=== PATIENT | female | born 1975 | race Caucasian/White ===

== ENCOUNTER 2023-06-08 06:30 | Outpatient (CLI) | payer BC, SELFPAY ==
--- NOTE | 2023-06-08 07:50 | W.ANESCHARGE ---
Anesthesia Charges Start Date/Time Anesthesia Start Date: 06/08/23 Anesthesia Start Time: 07:20 Stop Date/Time Anesthesia Stop Date: 06/08/23 Anesthesia Stop Time: 07:50
--- NOTE | 2023-06-08 08:58 | W.ANESCHARGE ---
Anesthesia Charges Start Date/Time Anesthesia Start Date: 06/08/23 Anesthesia Start Time: 07:20 Stop Date/Time Anesthesia Stop Date: 06/08/23 Anesthesia Stop Time: 07:50
== END 2023-06-08 06:31 | disposition home or self-care (01) ==
LOC: OP CLINIC 06:36
PROVIDERS: PCP Family Medicine; Visit Provider Internal Medicine Gastroenterology
DX: Z12.11 Encounter for screening for malignant neoplasm of colon (principal); K63.5 Polyp of colon
CPT/HCPCS: 00811; 45380; 88305; J2704